=== PATIENT | male | born 1955 | race Caucasian/White ===

== ENCOUNTER → 2018-02-18 15:02 | Outpatient (CLI) | payer OTHER, SELFPAY ==
--- NOTE | 2018-02-18 | DI.RAD.S_ITS ---
PROCEDURE: XR KNEE RT 3V INDICATIONS: RT KNEE PAIN TECHNIQUE: 3 views of the knee were acquired. COMPARISON: None. FINDINGS: Bones: No fractures or dislocations. No suspicious bony lesions. There is moderate joint space narrowing in the medial femorotibial compartment. Tricompartmental ossified formation. Soft tissues: Small knee joint effusion. No suspicious soft tissue calcifications. 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 Small joint effusion. Dictated by: Jazmine Briseno M.D. on 02/18/2018 at 16:34 Approved by: Jazmine Briseno M.D. on 02/18/2018 at 16:36
== END ==
PROVIDERS: Visit Provider Nurse Practitioner Family
DX: M17.11 Unilateral primary osteoarthritis, right knee (principal); M25.461 Effusion, right knee; M25.561 Pain in right knee
CPT/HCPCS: 73562

== ENCOUNTER → 2018-03-18 06:04 | Outpatient (CLI) | payer OTHER, SELFPAY ==
--- NOTE | 2018-03-18 | DI.CT.S_ITS ---
PROCEDURE: CT LUNG LOW DOSE SCREENING INDICATIONS: PERSONAL HISTORY OF TOBACCO USE TECHNIQUE: Noncontrast 2.0-2.5 mm thick sections acquired from the pulmonary apices to the posterior costophrenic angles. 7 mm thick coronal and sagittal MIP reformats were then acquired. A low radiation dose technique was utilized. COMPARISON: None. FINDINGS: Image quality: Diagnostic, given the low radiation dose technique. Lungs and pleura: No pulmonary nodules, infiltrate or effusion. Bibasilar scars/atelectasis. Mediastinum: Heart size is normal. No pericardial effusion. No mediastinal adenopathy by size criteria. Thoracic aorta and central pulmonary arteries are normal in size. Esophagus is normal in caliber. Small hiatal hernia. Bones and chest wall: No suspicious bony lesions. No vertebral body compression fractures. Degenerative changes are noted in thoracic spine. No axillary or supraclavicular adenopathy by size criteria. There is a 1 cm low density nodule in the right thyroid lobe. Note is made of a right shoulder prosthesis. Abdomen: Visualized upper abdomen solid organs and bowel loops appear normal in the absence of contrast. IMPRESSION: 1. No suspicious pulmonary nodules. 2. Bibasilar scars/atelectasis. 3. A 1 cm low-density nodule in right thyroid lobe. Recommend thyroid ultrasound for followup. 4. Small hiatal hernia. LUNG-RADS 1 ; Recommend low dose screening lung CT in 12 months Dictated by: Jazmine Briseno M.D. on 03/18/2018 at 8:54 Approved by: Jazmine Briseno M.D. on 03/18/2018 at 8:58
--- NOTE | 2018-03-18 | DI.MRI.S_ITS ---
PROCEDURE: MR KNEE RT WO CON INDICATIONS: MEDIAL RIGHT KNEE PAIN TECHNIQUE: Noncontrast sagittal PD fast spin echo and T2 fast spin echo with fat saturation, sagittal 3-D FLASH with fat saturation; coronal T1 spin echo and PD fast spin echo with fat saturation, and axial PD fast spin echo with fat saturation through the knee. COMPARISON: None. FINDINGS: Image quality: Excellent. Menisci: There is peripheral displacement of the medial meniscus bowing medial collateral ligament. No evidence of focal medial or lateral meniscal tear. The meniscal root ligaments appear intact. Cruciate ligaments: The anterior and posterior cruciate ligaments appear intact. Medial structures: Low to moderate grade proximal MCL sprain is seen near its femoral insertion. No full-thickness MCL rupture. The posterior oblique ligament, semimembranosus tendon insertions, oblique popliteal ligament, and meniscocapsular junction appear intact. Visualized portions of the pes anserinus tendons appear normal. No abnormal bursal fluid. Lateral structures: The lateral collateral ligament, long and short heads of the biceps femoris tendon appear intact. The popliteus tendon appears normal; the popliteofibular ligament appears intact. The posterosuperior and anteroinferior popliteomeniscal fascicles appear intact. The arcuate and fabellofibular ligaments appear intact, on either side of the lateral inferior geniculate artery. Iliotibial band appears normal. Anterior structures: The quadriceps and patellar tendons appear intact. Patellar alignment is normal. No femoral trochlear dysplasia or ventral trochlear prominence. No edema in the infrapatellar fat pad. Mild soft tissue swelling along anterior aspect of patella tendon is seen. No discrete drainable fluid collection. Bones and cartilage: There is moderate tricompartmental osteoarthritis more prominently medial femoral tibial compartment. Bony contusion is noted involving weight-bearing position of medial femoral condyle. No fracture or dislocation. No other area of abnormal marrow signal is noted. There is diffuse thinning of articulating cartilages. Chondromalacia involving apex and medial facet of patella cartilage is also seen.. Joint space: There is moderate amount of joint fluid. No Branham's cyst. Normal appearing synovial plicae are incidentally noted. IMPRESSION: 1. Moderate tricompartmental osteoarthritis most prominent in the medial femorotibial compartment. No fracture or dislocation. 2. Peripheral displacement of the medial meniscus bowing medial collateral ligament. No definite focal meniscal tear. 3. Moderate grade proximal to mid MCL sprain. Cruciate ligaments are intact. Dictated by: Salvatore Beaulieu M.D. on 03/18/2018 at 10:31 Approved by: Salvatore Beaulieu M.D. on 03/18/2018 at 10:37
== END ==
PROVIDERS: PCP Nurse Practitioner Family; Visit Provider Orthopaedic Surgery
DX: S83.411A Sprain of medial collateral ligament of right knee, initial encounter (principal); M17.11 Unilateral primary osteoarthritis, right knee; M25.561 Pain in right knee; K44.9 Diaphragmatic hernia without obstruction or gangrene; J98.4 Other disorders of lung; E04.1 Nontoxic single thyroid nodule; Z87.891 Personal history of nicotine dependence
CPT/HCPCS: 71250; 73721

== ENCOUNTER → 2018-08-23 08:36 | Outpatient (CLI) | payer OTHER, SELFPAY ==
--- NOTE | 2018-08-23 | DI.MRI.S_ITS ---
PROCEDURE: MR CERVICAL SPINE WO CON INDICATIONS: right sided neck to shoulder pains TECHNIQUE: Noncontrast sagittal T1 spin echo and T2 fast spin echo, sagittal STIR, foraminal oblique sagittal T2 fast spin echo, and axial gradient echo or T2 fast spin echo through the cervical spine. COMPARISON: None. FINDINGS: Image quality: Excellent. Alignment and Curvature: There is trace C2-C3 anterolisthesis. Bone Marrow: Reactive endplate changes adjacent to C4-C5, C5-C6 and C6-C7 discs. Spinal Cord: Visualized spinal cord has normal size and signal. No cerebellar tonsillar herniation. Paraspinous Soft Tissues: No paravertebral masses. Prevertebral soft tissues are normal in thickness. C2-C3: Loss of the signal. No central stenosis. No neural foraminal narrowing. No neural impingement or C3-C4: Loss of disc signal and slight loss of disc height. Mild, diffuse disc bulge. Moderate right facet hypertrophy. Moderate right and mild left uncovertebral joint hypertrophy. No central stenosis. Severe right and mild left neural foraminal narrowing with flattening deformity exiting right C4 nerve root. C4-C5: Loss of disc signal and height. Moderate, diffuse disc bulge. Mild bilateral facet hypertrophy. Severe right and moderate left uncovertebral joint hypertrophy. Mild narrowing of the central canal. Severe bilateral neural foraminal narrowing with flattening deformity of the exiting C5 nerve roots. C5-C6: Loss of disc signal and height. Mild, diffuse disc bulge. Mild bilateral uncovertebral joint hypertrophy. No central stenosis. Moderate bilateral neural foraminal narrowing. No neural impingement. C6-C7: Loss of disc signal and height. Mild to moderate diffuse disc bulge. No central stenosis. Mild right uncovertebral joint hypertrophy. Mild right neural foraminal narrowing. No neural impingement. C7-T1: Loss of the signal. Minimal, diffuse disc bulge. No central stenosis. No neural foraminal narrowing. No neural impingement. IMPRESSION: 1. Multilevel degenerative disc disease. 2. Multilevel facet arthropathy and uncovertebral joint hypertrophy. 3. Mild C4-C5 central canal narrowing. 3. Severe bilateral C4-C5 neural foraminal narrowing. Severe right and mild left C3-C4 neural foraminal narrowing. Moderate bilateral C5-C6 neural foraminal narrowing. Mild right C6-C7 neural foraminal narrowing. 7. Flattening deformity of the exiting right C4 nerve root and the exiting bilateral C5 nerve roots secondary to neural foraminal narrowing. Please correlate with clinical data. Dictated by: Brielle Inman MD, PhD on 08/25/2018 at 11:10 Approved by: Brielle Inman MD, PhD on 08/25/2018 at 11:18
== END ==
PROVIDERS: PCP Nurse Practitioner Family; Visit Provider Anesthesiology
DX: M25.511 Pain in right shoulder (principal); M50.31 Other cervical disc degeneration, high cervical region; M48.02 Spinal stenosis, cervical region; M47.812 Spondylosis without myelopathy or radiculopathy, cervical region
CPT/HCPCS: 72141

== ENCOUNTER 2018-08-27 06:12 | Day surgery (SDC) | payer OTHER, SELFPAY ==
[2018-08-22 07:45] VITALS: BMI 34.3
[2018-08-27] VITALS (15 sets, daily range): BP systolic 88–198; BP diastolic 53–114; PULSE 61–75; RESP 12–78; TEMP 36.5–37.4; O2SAT 17–99; BMI 33.3
[2018-08-27] MEDS: LACTATED RINGERS 1,000 ML 42 ML IV ×2 (07:30→08:50)
--- NOTE | 2018-08-27 07:37 | PM.PREOP ---
Pre-operative Note Interval Note History & Physical reviewed/Exam performed by Physician: Yes Changes to H&P: No
--- NOTE | 2018-08-27 07:38 | PM.OP.1 ---
Operative Date/Time/Diagnoses Date of procedure: 08/27/18 Time of procedure: 08:59 Pre-op diagnosis: Medial compartment osteoarthritis right knee Post-op diagnosis: same Procedure & Clinicians Procedure: Medial compartment arthroplasty right knee Same procedure as scheduled: Yes Indications: The patient presents today for right medial compartment arthroplasty after failure of conservative treatment. The nature of the procedure including the risks and benefits, alternatives, postoperative course and expected outcome were discussed and all questions answered. Consent was obtained. Operative site confirmed and marked. Surgeon: Marlo Guevara Stock Control Clerk: Damian Lewis Anesthesia Type: Spinal and Local Operative Notes Findings: Severe medial compartment osteoarthritis Closure Type: primary Specimen(s): none sent Prosthetic devices, grafts, tissues, transplants, or devices: ZUK, D femur, 4 tibia and 9 mm polyethylene spacer. Applied: implant(s) Estimated Blood Loss (mL): 5 Blood products transfused: none Tourniquet time (min): 35 Procedure in detail: The patient was taken to the operative suite and placed under general anesthesia. The patient received prophylactic antibiotics 1 g of IV tranexamic acid prior to surgery. The lateral aspect of the leg was prepped and the knee injected with 20 mL of 1% lidocaine with epinephrine. The leg was prepped and draped in usual sterile fashion. The leg was exsanguinated with an Esmarch dressing and the tourniquet raised to 250 torr. A 10 cm medial parapatellar incision and arthrotomy was then made. The anterior aspect of the fat pad and medial meniscus was resected. A small amount of anterior tibial boss was resected with a oscillating saw. The knee was then extended and the alignment guide placed. The distal femoral and proximal tibial cutting guides were then pinned into place. The distal femoral cut was made in extension. The proximal tibial cut was made in flexion. All remaining meniscus was excised. Gaps were checked with blocks. Soft tissues were then injected with a combination of 40 mL of quarter percent Marcaine with epinephrine, 20 mL of Exparel. The femur was sized and the appropriate cutting guide placed. The peg holes were drilled and chamfer cuts made. Next the tibia was sized and drilled. Trial components were then placed. The knee had good restorationist of soft tissue tension without over correction. Range of motion was full. The trial components were removed. The knee was cleansed with Pulsavac irrigation and dried. The components were then cemented with high viscosity vacuum mixed bone cement. The knee was held in extension until the cement had adequately cured. The knee was then irrigated and inspected for any further debris. The extensor mechanism was closed at 90? of flexion with a few interrupted #1 Vicryl sutures and a running O V-LOC suture. The knee was then filled with 50 mL of solution containing 1 g of tranexamic acid and 10 mL of 0.5% Marcaine. The subcutaneous tissue was closed with 2-0 Vicryl. The skin was closed with a running 3 0 V-LOC suture and surgical adhesive. An Aquacel dressing was applied. The leg was then wrapped with an Vignesh which will be kept on for the first 24 hours. The patient tolerated the procedure well and was returned to recovery room in good condition. Complications: none Condition: stable Disposition: same day surgery Plan for aftercare: Discharged to home. Weightbearing as tolerated. Begin physical therapy within the 1st week. Follow up in 1 week.
--- NOTE | 2018-08-27 07:42 | SUR.PREOP ---
PT REPORTS HAS RING WORM ON LEFT OUTER UPPER THIGH THAT IS CHRONIC AND COMES AND GOES. PT REPORTS GIS CONSULTANT PRESCRIBED CREAM THAT HE USES WHEN IT APPEARS AND PT REPORTS USED THE CREAM THIS MORNING. SPOKE WITH DR. ROCHA AND NOTIFIED HIM OF THIS, NO NEW ORDERS. NOTIFIED OR ROOM RAY [place] [facility].
--- NOTE | 2018-08-27 07:45 | DI.RAD.S_ITS ---
PROCEDURE: XR KNEE RT 1TO2V INDICATIONS: RIGHT UNI KNEE, POST OPERATIVE TECHNIQUE: 2 view(s) of the knee acquired. COMPARISON: [facility], , XR KNEE RT 3V, 02/18/2018, 14:48. FINDINGS: Bones: Patient is status post knee unicompartmental medial arthroplasty. Hardware components are in expected positions. Visualized bony structures are intact. Soft tissues: Overlying postoperative changes are noted. IMPRESSION: Expected postoperative appearance. Dictated by: Dar Link M.D. on 08/27/2018 at 9:32 Approved by: Dar Link M.D. on 08/27/2018 at 9:32
[2018-08-27] MEDS: CEFAZOLIN 2 GM/100 ML FROZ.PIGGY IV (07:50)
[2018-08-27] MEDS: LIDOCAINE 1% W/EPI INJ 20 ML INJ (07:59)
[2018-08-27] MEDS: TRANEXAMIC ACID 1,000 MG VIAL 1000 MG INJ (08:10)
--- NOTE | 2018-08-27 08:25 | SUR.OPER ---
Supine on padded OR bed. Pillow under head, arms secured on padded armboards <90 degree abduction. Safety belt across torso. Non-operative leg secured with tape over blanket over lower leg. Operative leg secured in DeMayo/Nasir positioner. Foam padded brace at thigh of operative leg.
[2018-08-27] MEDS: BUPIVACAINE 0.5% W/ EPI (PF) 20 ML, BUPIVACAINE LIPOSOME 266 MG, SODIUM CHLORIDE 0.9% 2... INJ (08:53)
[2018-08-27] MEDS: BUPIVACAINE 0.5% W/ EPI (PF) 10 ML, TRANEXAMIC ACID 1,000 MG, SODIUM CHLORIDE 0.9% 20 ML INJ (08:54)
[2018-08-27] MEDS: POVIDONE-IODINE 15 ML, SODIUM CHLORIDE 0.9% 250 ML TOP (08:55)
--- NOTE | 2018-08-27 09:32 | SUR.PHASEI ---
0929 To OPD, report given, two RN's present. +motion in Dinesh LE, no sensation, CMS WNL. Alert, oriented, no nausea/pain.
[2018-08-27] MEDS: OXYCODONE/ACETAMINOPHEN 5/325 TABLET 1 TAB PO ×2 (12:41→13:30)
[2018-08-27] MEDS: NAPROXEN 250 MG TABLET 500 MG PO (14:10)
[2018-08-27] MEDS: fentaNYL 100 MCG/2 ML INJ 50 MCG IV ×4 (14:55→15:55)
--- NOTE | 2018-08-27 17:07 | P.PCN_ITS ---
Procedures Date/Time Date of procedure: 08/27/18 Time of procedure: 17:06 Nerve Block Time out performed: Yes Local anesthetic used: lidocaine 1% (w/ epi 5mL + 15mL 0.5opivacaine) Location of anesthetic used: adductor canal Amount of anesthesia used (mL): 20 Nerve blocks: femoral (adductor canal) Procedure successful: Yes Patient tolerated procedure: well Complications: none Additional comments: Adductor canal block for post operative pain management. R/B discussed. Site marked. Consent verified/signed. Standard ASA monitors. NC O2. Chloroprep. Sterile technique. Femoral A/V/N identified medial mid thigh with US. Lidocaine skin wheal. 100mm x 21g Pajunk needle advanced with in-plane US guidance. Negative aspiration. LA injected medial and lateral to femoral artery. Negative aspiration throughout. No pain, no paresthesia with injection. VSS. Tolerated well. To OR.
--- NOTE | 2018-08-27 17:47 | SUR.PHASEII ---
1656 . Monitoring initiated and maintained throughout procedure. Oxygen and medications given per anesthesiologist instructions. Patient remained stable throughout procedure, no adverse reactions noted. Block end time [1701].
--- NOTE | 2018-08-27 17:48 | SUR.PHASEII ---
pt struggled with pain control issues and spinal not wearing off all day. oral meds and iv meds were not effective and ultimately nerve block was done at 1700 and pt had almost immediate relief pain went from 8/ to 3/. out of bed to wheelchair and toilet with minimal assist
--- NOTE | 2018-08-27 18:26 | SUR.PHASEII ---
pt ambulated from bed to bathroom using walker with no assit., dressed self, discharged to home with
== END 2018-08-27 18:15 | disposition home or self-care (01) ==
PROVIDERS: PCP Nurse Practitioner Family; Visit Provider Orthopaedic Surgery
PROC: (CPT 27446; principal; 2018-08-27 07:45)
DX: M17.11 Unilateral primary osteoarthritis, right knee (principal); S83.241A Other tear of medial meniscus, current injury, right knee, initial encounter; G89.18 Other acute postprocedural pain; G47.30 Sleep apnea, unspecified; E66.9 Obesity, unspecified; I10 Essential (primary) hypertension; E78.00 Pure hypercholesterolemia, unspecified; E11.9 Type 2 diabetes mellitus without complications; J44.9 Chronic obstructive pulmonary disease, unspecified; F17.210 Nicotine dependence, cigarettes, uncomplicated; Z79.84 Long term (current) use of oral hypoglycemic drugs; Z68.33 Body mass index [BMI] 33.0-33.9, adult
CPT/HCPCS: 27446; 64447; 64450; 73560; C1776; C9290; J0690; J2250; J2704; J3010

== ENCOUNTER → 2019-01-28 07:43 | Outpatient (CLI) | payer OTHER, SELFPAY ==
--- NOTE | 2019-01-28 | DI.US.S_ITS ---
PROCEDURE: US ABD AORTA ANEURYSM SCREEN INDICATIONS: SCREENING TECHNIQUE: Real time scanning was performed of the aorta and iliac arteries, with image documentation. COMPARISON: None. FINDINGS: Aorta: Proximal aortic diameter measures 3.3 cm. Mid-aorta measures 2.4 cm. Distal aortic diameter is 2.1 cm. Vascular calcifications indicate atherosclerosis. Iliac arteries: Right common iliac artery measures 1.6 cm. Left common iliac artery measures 1.8 cm. IMPRESSION: Mild aneurysmal dilatation of the proximal aorta measuring up to 3.3 cm. 3 year followup ultrasound recommended. Dictated by: Kishor MACK Interpreted: Dar Link MD on 01/28/2019 at 8:59 Approved by: Dar Link M.D. on 01/28/2019 at 11:23
== END ==
PROVIDERS: PCP Nurse Practitioner Family; Visit Provider Nurse Practitioner Family
DX: Z13.6 Encounter for screening for cardiovascular disorders (principal); I77.811 Abdominal aortic ectasia
CPT/HCPCS: 76706

== ENCOUNTER 2019-04-25 22:24 | Emergency (ER) | payer OTHER, SELFPAY ==
--- NOTE | 2019-04-25 22:28 | ED_ITS ---
HPI - Chest Pain General Chief Complaint: Chest Pain Stated Complaint: coughed and now has left side rib pain Time Seen by Provider: 04/25/19 22:27 Source: patient and family Mode of arrival: Ambulatory Limitations: no limitations History of Present Illness HPI narrative: 63-year-old male with history of hypertension and lung disease presents with his in the chief complaint of severe left anterior chest pain after coughing and feeling a pop. He now can't palpate a tender spot in his left anterior chest wall. He denies any shortness of breath but has been coughing for a few weeks. He denies that there is any sputum production, hemoptysis, fever or chills. MD complaint: chest pain Onset (ago): hour(s) Duration: constant Pain location: left chest Severity: moderate Quality: sharp Pain radiation: none Relieving factors: rest Exacerbating factors: inspiration and palpation Related Data Home Medications Medication Instructions Recorded Confirmed Advair Diskus 1 inh INHALATION BID 08/22/18 03/19/19 Spiriva with HandiHaler 1 cap INHALATION DAILY 08/22/18 03/19/19 Ventolin HFA 1 puff INHALATION Q4-6H PRN 08/22/18 03/19/19 aspirin 81 mg PO DAILY 08/22/18 03/19/19 benzonatate 100 mg PO TID PRN 08/22/18 03/19/19 clonidine HCl 0.2 mg PO DAILY 08/22/18 03/19/19 esomeprazole magnesium 40 mg PO DAILY 08/22/18 03/19/19 gabapentin 600 mg PO BEDTIME PRN 08/22/18 03/19/19 hydrocodone-acetaminophen 1 tab PO Q6H PRN 08/22/18 03/19/19 metformin 500 mg PO BID 08/22/18 03/19/19 sennosides-docusate sodium [Senna 1 tab PO BID 08/22/18 03/19/19 Plus] simvastatin 10 mg PO BEDTIME 08/22/18 03/19/19 tamsulosin 0.4 mg PO DAILY 08/22/18 03/19/19 zolpidem 5 mg PO BEDTIME PRN 08/22/18 03/19/19 Previous Rx's Medication Instructions Recorded oxycodone 10 mg PO Q4-6H PRN #60 tab 08/27/18 Oral Appliance for mild ALVERTO G47.33 #1 ea 10/28/18 benzonatate [Tessalon Perles] 100 mg PO TID PRN #14 cap 04/25/19 promethazine-codeine 5 ml PO Q4-6H PRN #473 ml 04/26/19 Allergies Allergy/AdvReac Type Severity Reaction Status Date / Time No Known Drug Allergies Allergy Verified 03/19/19 09:39 Review of Systems Constitutional Constitutional: Denies chills, Denies fatigue, Denies fever(s), Denies frequent falls, Denies lethargy and Denies weakness Eyes Eyes: Denies change in vision, Denies eye discharge, Denies irritation and Denies loss of vision ENT Ears, Nose, Mouth, and Throat: Denies change in voice, Denies dizziness, Denies neck pain, Denies sore throat and Denies throat swelling Cardiovascular Cardiovascular: Reports chest pain, Denies irregular heart rhythm, Denies lightheadedness, Denies palpitations, Denies dyspnea, Denies dyspnea on exertion and Denies orthopnea Respiratory Respiratory: Reports cough, Denies dyspnea, Denies dyspnea on exertion and Denies wheezing Gastrointestinal Gastrointestinal: Denies abdominal pain, Denies change in bowel habits, Denies diarrhea, Denies nausea and Denies vomiting Genitourinary Genitourinary: Denies hematuria, Denies flank pain, Denies urinary incontinence and Denies urinary urgency Musculoskeletal Musculoskeletal: Denies back pain, Denies muscle weakness, Denies neck pain, Denies numbness and Denies tingling Integumentary/Breasts Skin/Breast: Denies pruritus, Denies erythema, Denies rash and Denies wounds Neurologic Neurologic: Denies behavioral changes, Denies confusion, Denies dizziness, Denies frequent falls, Denies loss of vision, Denies numbness, Denies tingling and Denies weakness Psychiatric Psychiatric: Denies anxiety, Denies behavioral changes, Denies confusion, Denies depression, Denies homicidal ideation and Denies suicidal ideation Endocrine Endocrine: Denies fatigue, Denies flushing and Denies palpitations Hematologic/Lymphatic Hematologic/Lymphatic: Denies easy bruising Allergic/Immunologic Allergic/Immunologic: Denies urticaria, Denies throat swelling and Denies wheezing Patient History Medical History Chronic pancreatitis (Acute) COPD (chronic obstructive pulmonary disease) (Acute) Current every day smoker (Acute) Glaucoma (Acute) HTN (hypertension) (Acute) Hyperlipidemia (Acute) Leukocytosis (Acute) Multiple myeloma (Acute) Prostate cancer (Acute ~2008) Sleep apnea (Acute) Type 2 diabetes mellitus (Acute) Surgical History History of arthroplasty of right shoulder (Acute ~05/2017) History of pancreatic surgery (Acute ~2010) Hx of arthroscopy of left knee (Acute) Hx of cholecystectomy (Acute ~2010) Hx of shoulder surgery (Acute) Hx of splenectomy (Acute ~2010) S/P left unicompartmental knee replacement (Acute ~2013) Social History household members: spouse Smoking Status: Current every day smoker Exam Narrative Exam Narrative: GENERAL 63 year old patient appears stated age. Well-nourished, well-developed patient, obviously uncomfortable and splinting his left anterior chest HEAD: Atraumatic. Normocephalic. EYES: Pupils equal round and reactive. Extraocular motions intact. No scleral ic terus. No injection or drainage. ENT: Nose without bleeding, purulent drainage. Throat without erythema, tonsillar hypertrophy or exudate. Airway patent. NECK: Trachea midline. Non tender CARDIOVASCULAR: Tender to palpate left anterior chest Regular rate and rhythm without murmurs, gallops, or rubs. RESPIRATORY: Clear to auscultation. Breath sounds equal bilaterally. No wheezes, rales, or rhonchi. GASTROINTESTINAL: Abdomen soft, non-tender, nondistended. EXTREMITIES: No edema or joint tenderness. BACK: Nontender without deformity or crepitance. No flank tenderness. NEURO: AOx3. SKIN: No rash or erythema of visible areas Initial Vital Signs Initial Vital Signs: Vital Signs Temperature 98.7 F 04/25/19 22:36 Pulse Rate 81 04/25/19 22:36 Respiratory Rate 14 04/25/19 22:36 Blood Pressure 206/118 H 04/25/19 22:36 Pulse Oximetry 96 04/25/19 22:36 Procedures Orthopedic Splinting/Casting Injury #1: Side: left Upper Extremity Injury Location: shoulder Upper Extremity Immobilizer: sling/shoulder immobilizer Post splinting neuro exam: intact Post splinting vascular exam: intact Placed by: Nursing Course Orders Ordered: ED Orders 04/25/19 22:41 XR chest 2V Stat Discontinued Medications Acetaminophen/Codeine Phosphate (Tylenol Oral Gladis 120-12 Mg/5 Ml) 10 ml PO NOW ONE Stop: 04/26/19 00:04 Last Admin: 04/26/19 00:33 Dose: 10 ml Documented by: MADI Lidocaine (Lidoderm) 1 each TOP NOW ONE Stop: 04/25/19 22:58 Last Admin: 04/25/19 23:22 Dose: 1 each Documented by: MADI Vital Signs Vital signs: Vital Signs - 8 hr 04/25/19 22:36 04/26/19 00:54 Temperature 98.7 F Pulse Rate 81 73 Respiratory Rate 14 15 Blood Pressure 206/118 H 183/100 H Pulse Oximetry 96 95 MDM - Chest Pain Imaging Data Chest x-ray: Attestation: I personally reviewed and interpreted this imaging study as follows: My impression: No acute process Discharge Plan Departure Patient Disposition: Home Clinical Impression: Atypical chest pain, Costalchondritis Discharge Date/Time: 04/26/19 00:45 Instructions: DI for Atypical Chest Pain Activity Restrictions/Additional Instructions: *You have been diagnosed with [chest wall pain, x-ray did not show fracture or collapsed lung, nor pneumonia] *What to do: *Take medications as directed *Follow up with your primary care provider in 2-3 days, call for an appointment. Let them know you were seen in the Emergency Department and that we ask that you be seen in follow up *Return to ER if you should have any new, worsening or concerning symptoms such as worsening pain, shortness of breath, cough with bloody sputum or other bothersome symptoms Radiographic study has been interpreted by an emergency physician. The official diagnosis by radiology will be performed within the next 24 hours and should there be any change in outcome we will notify you of how to proceed. Prescriptions: New benzonatate [Tessalon Perles] 100 mg capsule 100 mg PO TID PRN (Reason: cough) Qty: 14 RF: 0 promethazine-codeine 6.25-10 mg/5 mL syrup 5 ml PO Q4-6H PRN (Reason: cough) Qty: 473 RF: 0 No Action (DME) Oral Appliance for mild ALVERTO G47.33 Qty: 1 RF: 0 hydrocodone-acetaminophen 10-325 mg Tablet 1 tab PO Q6H PRN (Reason: Pain) RF: 0 gabapentin 300 mg Capsule 600 mg PO BEDTIME PRN (Reason: Restless Leg(S)) RF: 0 zolpidem 5 mg Tablet 5 mg PO BEDTIME PRN (Reason: Insomnia) RF: 0 Ventolin HFA 90 mcg/actuation Hfa Aerosol Inhaler 1 puff INHALATION Q4-6H PRN (Reason: Shortness Of Breath) RF: 0 metformin 500 mg Tablet 500 mg PO BID RF: 0 Advair Diskus 250-50 mcg/dose Blister With Device 1 inh INHALATION BID RF: 0 sennosides-docusate sodium [Senna Plus] 8.6-50 mg Tablet 1 tab PO BID RF: 0 simvastatin 10 mg Tablet 10 mg PO BEDTIME RF: 0 aspirin 81 mg Tablet,Delayed Release (Dr/Ec) 81 mg PO DAILY RF: 0 clonidine HCl 0.2 mg Tablet 0.2 mg PO DAILY RF: 0 tamsulosin 0.4 mg Capsule 0.4 mg PO DAILY RF: 0 benzonatate 100 mg Capsule 100 mg PO TID PRN (Reason: Cough) RF: 0 esomeprazole magnesium 40 mg Capsule,Delayed Release(Dr/Ec) 40 mg PO DAILY RF: 0 Spiriva with HandiHaler 18 mcg Capsule, W/Inhalation Device 1 cap INHALATION DAILY RF: 0 oxycodone 5 mg tablet 10 mg PO Q4-6H PRN (Reason: pain) Qty: 60 RF: 0 Referrals: Felicita Tavares ARNP [Primary Care Provider] -
[2019-04-25 22:36] VITALS: BP 206/118; PULSE 81; RESP 14; TEMP 37.1; O2SAT 96; BMI 35.2
--- NOTE | 2019-04-25 22:41 | DI.RAD.S_ITS ---
PROCEDURE: XR CHEST 2V INDICATIONS: chest pain s/p cough TECHNIQUE: 2 views of the chest were acquired. COMPARISON: [facility], CT, CT LUNG LOW DOSE SCREENING, 03/18/2018, 7:05. FINDINGS: Surgical changes and devices: There is partial visualization of right shoulder hardware. Lungs and pleura: The lungs are hyperexpanded. Mild, streaky opacities are seen at the lung bases. Mild interstitial prominence is seen. No large pneumothorax or large pleural effusions are seen. Mediastinum: The cardiac contours are within normal limits. The aorta demonstrates calcification and tortuosity. Bones and chest wall: No suspicious bony abnormalities. Age-appropriate bony degenerative changes are seen. Soft tissues appear unremarkable. IMPRESSION: Interstitial prominence is seen throughout. The interstitial prominence is nonspecific, yet may be related to pulmonary edema. Likely atelectasis is seen at the lung bases. Dictated by: Farhan Villegas M.D. on 04/26/2019 at 8:13 Approved by: Farhan Villegas M.D. on 04/26/2019 at 8:15
[2019-04-25] MEDS: LIDOCAINE PATCH 1 EACH ADH..PATCH TOP (23:22)
--- NOTE | 2019-04-25 23:40 | PC.NURSE ---
Pt came to the doorway to report new LLQ pain, then vomited into the trash can. Dr Almonte notified, orders for meds and KUB received. Pt aware and agreeable to plan.
[2019-04-26] MEDS: ACETAMINOPHEN/CODEINE SOLN 5 ML SOLUTION 10 ML PO (00:33)
[2019-04-26 00:54] VITALS: BP 183/100; PULSE 73; RESP 15; O2SAT 95
== END 2019-04-26 00:45 | disposition home or self-care (01) ==
PROVIDERS: Emergency Provider Emergency Medicine; PCP Nurse Practitioner Family
DX: R07.89 Other chest pain (principal); M94.0 Chondrocostal junction syndrome [Tietze]; E11.9 Type 2 diabetes mellitus without complications
CPT/HCPCS: 71046; 99282; 99283

== ENCOUNTER → 2020-03-08 09:33 | Outpatient (CLI) | payer MEDICARE, SELFPAY ==
[2020-03-09 14:16] LABS: COVID19 Sendout Not Detected (Not Detect)
== END ==
PROVIDERS: PCP Nurse Practitioner Family; Visit Provider Physician Assistant
DX: Z11.59 Encounter for screening for other viral diseases (principal)
CPT/HCPCS: 87635

== ENCOUNTER → 2020-03-11 14:55 | Outpatient (CLI) | payer MEDICARE, OTHER, SELFPAY ==
--- NOTE | 2020-03-11 16:02 | PM.TREADMILL ---
Cardiac Stress Test Report Referral & Results Date Patient Seen: 03/11/20 Time Patient Seen: 16:02 Requesting provider: Kylah Rose Indication: Patient presented to stress lab with blood pressure of 180/110 and was unchanged on subsequent checks. ECG ran fro 10 minutes and no PVCs were seen. Rest ECG: Sinus rhythm Procedure Note: Test cancelled due to elevated blood pressure. Impression: Test may be completed after optimization of antihypertensive medications. Please note: Actual ECG tracings can be found in the PACS system.
== END ==
PROVIDERS: PCP Nurse Practitioner Family; Referring Provider Internal Medicine; Visit Provider Internal Medicine
DX: I49.3 Ventricular premature depolarization (principal); I10 Essential (primary) hypertension; Z53.09 Procedure and treatment not carried out because of other contraindication
CPT/HCPCS: 93016; 93017; 93018

== ENCOUNTER → 2020-03-18 11:35 | Outpatient (CLI) | payer MEDICARE, OTHER, SELFPAY ==
[2020-03-20 09:29] LABS: COVID19 Sendout Not Detected (Not Detect)
== END ==
PROVIDERS: PCP Nurse Practitioner Family; Visit Provider Physician Assistant
DX: Z11.59 Encounter for screening for other viral diseases (principal)
CPT/HCPCS: 87635

== ENCOUNTER → 2020-03-21 10:22 | Outpatient (CLI) | payer MEDICARE, OTHER, SELFPAY ==
--- NOTE | 2020-03-22 18:14 | DI.NM.S_ITS ---
DATE OF SERVICE: 03/21/2020 PROCEDURE: Exercise perfusion study. INDICATION: PVCs, hypertension, hyperlipidemia. RADIOPHARMACEUTICAL: 25.8 millicurie technetium-99m IV was injected at stress and 24.4 millicurie technetium-99m Myoview IV was injected at rest. CARDIAC STRESS: The patient underwent exercise perfusion study under the supervision of an attending staff. He walked on modified Ronald protocol. Patient could not tolerate stage II, so speed was reduced, but eventually it was discontinued at 4 minutes and 30 seconds. Patient felt significant shortness of breath. No chest pain. Baseline blood pressure 140/90. Peak blood pressure 216/120, suggestive of hypertensive blood pressure response. Achieved 84 percent of target heart rate. This baseline rhythm was sinus. During stress, no convincing EKG changes. Intermittent PVCs without any ventricular tachycardia. RAW DATA: There is increased subdiaphragmatic activity. Patient's weight is 271 pounds. GATED STUDY: Stress and resting LV ejection fraction about 57 percent without any obvious wall motion abnormalities. Resting end-diastolic volume 164 mL. TID ratio 0.97, which is within normal limits. Lung/heart ratio 0.34, which is within normal limits. MYOCARDIAL PERFUSION: Stress supine, resting supine images revealed moderate size, mild to moderately decreased perfusion of inferior wall and inferior apex, which got significantly improved during prone images suggestive of diaphragmatic tissue attenuation artifact. Prone images showed minimally decreased perfusion of inferior apex. No reversible ischemia. CONCLUSION: I will call this study likely a normal myocardial perfusion study with evidence of diaphragmatic tissue attenuation artifact ,which got significantly improved during prone images. There is an element of shifting attenuation artifact, as well. Poor exercise tolerance. Significant dyspnea during exercise. Intermittent premature ventricular contractions during exercise without any ventricular tachycardia. Hypertensive blood pressure response. The patient's weight is 271 pounds. There is a history of smoking, as well. Correlate clinically. Ernst Barrera - SONDRA/farzaneh/elle doc#: [id number]/job#: [id number] dd: 03/22/2020 17:15:00 dt: 03/22/2020 18:06:00 DICTATING MD/COPIES TO: Mike Khan MD COPIES MNE: JERONIMO;
== END ==
PROVIDERS: PCP Internal Medicine; Referring Provider Internal Medicine; Visit Provider Internal Medicine
DX: I49.3 Ventricular premature depolarization (principal); I10 Essential (primary) hypertension; E78.5 Hyperlipidemia, unspecified
CPT/HCPCS: 78452; 93017; A9502

== ENCOUNTER → 2020-05-19 08:14 | Outpatient (CLI) | payer MEDICARE, OTHER, SELFPAY ==
[2020-05-19 09:33] LABS: Hemoglobin A1C% w Est Avg Glu 6.6 % (4.0-6.0)
[2020-05-19 09:41] LABS: Alanine Aminotransferase 33 IU/L (<50); Albumin Globulin Ratio 1.3 (1.0-2.8); Alkaline Phosphatase 79 U/L (38-126); Aspartate Aminotransferase 31 IU/L (17-59); Bilirubin Total 0.6 mg/dL (0.2-1.3); Blood Urea Nitrogen 26 mg/dL (9-20); Calcium 9.4 mg/dL (8.4-10.2); Carbon Dioxide 32 mmol/L (22-32); Chloride 104 mmol/L (98-107); Cholesterol 154 mg/dL (140-199); Estimated Glomerular Filt Rate > 60.0 mL/min (>60); Glucose 110 mg/dL (80-110); HDL Cholesterol 50 mg/dL (40-60); HEMOLYSIS < 15 (0-50); LDL Cholesterol Calculated 85 mg/dL (<100); Sodium 141 mmol/L (137-145); Triglycerides 93 mg/dL (35-150)
== END ==
PROVIDERS: PCP Internal Medicine; Referring Provider Internal Medicine; Visit Provider Internal Medicine
DX: I10 Essential (primary) hypertension (principal); E11.9 Type 2 diabetes mellitus without complications; E78.5 Hyperlipidemia, unspecified
CPT/HCPCS: 36415; 80053; 80061; 83036

== ENCOUNTER → 2020-06-11 11:03 | Outpatient (CLI) | payer MEDICARE, OTHER, SELFPAY ==
[2020-06-11 11:53] LABS: COVID19 -Nasal RAPID Negative (Negative)
== END ==
PROVIDERS: PCP Internal Medicine; Visit Provider Physician Assistant
DX: Z01.812 Encounter for preprocedural laboratory examination (principal); Z20.828 Contact with and (suspected) exposure to other viral communicable diseases
CPT/HCPCS: 87635; C9803

== ENCOUNTER → 2020-08-01 16:41 | Outpatient (CLI) | payer MEDICARE, OTHER, SELFPAY ==
[2020-08-01 17:58] LABS: Alanine Aminotransferase 22 IU/L (<50); Albumin 3.8 g/dL (3.5-5.0); Albumin Globulin Ratio 1.3 (1.0-2.8); Alkaline Phosphatase 81 U/L (38-126); Aspartate Aminotransferase 25 IU/L (17-59); BUN Creatinine Ratio 25.5 (6-22); Bilirubin Total 0.2 mg/dL (0.2-1.3); Blood Urea Nitrogen 24 mg/dL (9-20); Calcium 9.1 mg/dL (8.4-10.2); Carbon Dioxide 31 mmol/L (22-32); Chloride 102 mmol/L (98-107); Estimated Glomerular Filt Rate > 60.0 mL/min (>60); Globulin 2.9 g/dL (1.7-4.1); Glucose 121 mg/dL (80-110); HEMOLYSIS < 15 (0-50); Potassium 3.8 mmol/L (3.4-5.1); Sodium 136 mmol/L (137-145); Total Protein 6.7 g/dL (6.3-8.2)
[2020-08-01 18:06] LABS: Hemoglobin A1C% w Est Avg Glu 6.1 % (4.0-6.0)
[2020-08-01 18:13] LABS: Add Manual Diff / Slide Review NO; Basophils Absolute Auto 100 /uL (0-100); Basophils Percent Auto 0.6 % (0-2); Eosinophils Absolute Auto 200 /uL (0-450); Eosinophils Percent Auto 1.8 % (2-4); Hematocrit 39.6 % (41-53); Hemoglobin 13.3 g/dL (13.5-17.5); Lymphocytes Absolute Auto 3600 /uL (1100-4500); Lymphocytes Percent Auto 28.1 % (25-40); Mean Corpuscular HGB Conc 33.5 % (30-36); Mean Corpuscular Hemoglobin 30.8 PG (26-34); Mean Corpuscular Volume 92.1 fL (80-100); Monocytes Absolute Auto 800 /uL (0-900); Monocytes Percent Auto 6.6 % (3-14); Neutrophils Absolute Auto 8000 /uL (1500-7000); Neutrophils Percent Auto 62.9 % (50-75); Platelet Count 328 X10^3/uL (150-400); Red Cell Distribution Width 14.4 % (11.6-14.8); White Blood Cell Count 12.7 X10^3/uL (4.5-11.0)
[2020-08-01 18:24] LABS: Thyroid Stimulating Hormone 0.811 uIU/mL (0.47-4.68)
[2020-08-01 19:02] LABS: Folate 9.2 ng/mL (2.76-20.0); Vitamin B12 333 pg/mL (239-931)
[2020-08-02 17:33] LABS: Vitamin B6 12.1 ug/L (5.3-46.7)
[2020-08-02 23:07] LABS: Methylmalonic Acid,Serum 182 nmol/L (0-378)
== END ==
PROVIDERS: PCP Internal Medicine; Referring Provider Psychiatry & Neurology Neurology; Visit Provider Psychiatry & Neurology Neurology
DX: G62.9 Polyneuropathy, unspecified (principal); I10 Essential (primary) hypertension; E13.40 Other specified diabetes mellitus with diabetic neuropathy, unspecified; E78.49 Other hyperlipidemia
CPT/HCPCS: 36415; 80053; 82607; 82746; 83036; 83921; 84207; 84443; 85025

== ENCOUNTER → 2020-08-26 11:58 | Outpatient (CLI) | payer MEDICARE, OTHER, SELFPAY ==
[2020-08-26 12:45] LABS: Add Manual Diff / Slide Review NO; Basophils Absolute Auto 100 /uL (0-100); Basophils Percent Auto 0.6 % (0-2); Eosinophils Absolute Auto 200 /uL (0-450); Eosinophils Percent Auto 2.1 % (2-4); Hematocrit 41.7 % (41-53); Hemoglobin 13.8 g/dL (13.5-17.5); Lymphocytes Absolute Auto 3200 /uL (1100-4500); Lymphocytes Percent Auto 29.2 % (25-40); Mean Corpuscular HGB Conc 33.1 % (30-36); Mean Corpuscular Hemoglobin 30.6 PG (26-34); Mean Corpuscular Volume 92.5 fL (80-100); Monocytes Absolute Auto 700 /uL (0-900); Monocytes Percent Auto 6.7 % (3-14); Neutrophils Absolute Auto 6700 /uL (1500-7000); Neutrophils Percent Auto 61.4 % (50-75); Platelet Count 290 X10^3/uL (150-400); Red Cell Distribution Width 14.6 % (11.6-14.8); White Blood Cell Count 10.9 X10^3/uL (4.5-11.0)
[2020-08-26 12:59] LABS: Alanine Aminotransferase 25 IU/L (<50); Albumin Globulin Ratio 1.6 (1.0-2.8); Alkaline Phosphatase 80 U/L (38-126); Aspartate Aminotransferase 26 IU/L (17-59); BUN Creatinine Ratio 22.7 (6-22); Bilirubin Total 0.4 mg/dL (0.2-1.3); Blood Urea Nitrogen 22 mg/dL (9-20); Calcium 9.9 mg/dL (8.4-10.2); Carbon Dioxide 28 mmol/L (22-32); Chloride 101 mmol/L (98-107); Estimated Glomerular Filt Rate > 60.0 mL/min (>60); Globulin 2.5 g/dL (1.7-4.1); Glucose 168 mg/dL (80-110); HEMOLYSIS < 15 (0-50); Lactate Dehydrogenase 355 U/L (313-618); Potassium 3.9 mmol/L (3.4-5.1); Sodium 136 mmol/L (137-145); Total Protein 6.5 g/dL (6.3-8.2)
[2020-08-29 12:38] LABS: Beta-2-Microglobulin 2.1 mg/L (0.6-2.4); Immunoglobulin A, Serum 308 mg/dL (61-437); Immunoglobulin G,Serum 700 mg/dL (603-1613); Immunoglobulin M, Serum 43 mg/dL (20-172)
[2020-08-29 15:28] LABS: Albumin 3.5 g/dL (2.9-4.4); Alpha-1-Globulin 0.2 g/dL (0.0-0.4); Alpha-2-Globulin 0.8 g/dL (0.4-1.0); Gamma Globulin 0.8 g/dL (0.4-1.8); Globulin Total 2.9 g/dL (2.2-3.9); Protein, Total 6.4 g/dL (6.0-8.5)
[2020-09-01 08:12] LABS: Free Kappa Lt Chains, Serum 23.6; Free Lambda Lt Chains,Serum 14.7
== END ==
PROVIDERS: PCP Internal Medicine; Referring Provider Internal Medicine Hematology & Oncology; Visit Provider Internal Medicine Hematology & Oncology
DX: D47.2 Monoclonal gammopathy (principal)
CPT/HCPCS: 36415; 80053; 82232; 82784; 83615; 83883; 84155; 84165; 85025; 86334

== ENCOUNTER → 2020-10-17 10:12 | Outpatient (CLI) | payer MEDICARE, OTHER, SELFPAY ==
[2020-10-17 12:35] LABS: Prostate Specific Antigen < 0.064 ng/mL (0.10-4.00)
== END ==
PROVIDERS: PCP Internal Medicine; Referring Provider Specialist; Visit Provider Specialist
DX: R97.20 Elevated prostate specific antigen [PSA] (principal)
CPT/HCPCS: 36415; 84153

== ENCOUNTER → 2021-06-30 10:39 | Outpatient (CLI) | payer MEDICARE, OTHER, SELFPAY ==
--- NOTE | 2021-06-30 | DI.RAD.S_ITS ---
PROCEDURE: XR SHOULDER RT MIN 2V INDICATIONS: Presence of right artificial shoulder joint TECHNIQUE: 3 views of the shoulder were acquired. COMPARISON: None. FINDINGS: Bones: Expected appearance of right shoulder arthroplasty. No evidence of hardware failure or loosening. No fractures or dislocations. No suspicious bony lesions. Visualized ribs appear intact. Soft tissues: No suspicious soft tissue calcifications. IMPRESSION: Expected appearance of right shoulder arthroplasty. Dictated by: Jimmy Ho M.D. on 06/30/2021 at 15:12 Approved by: Jimmy Ho M.D. on 06/30/2021 at 15:25
== END ==
PROVIDERS: PCP Internal Medicine; Referring Provider Pain Medicine Pain Medicine; Visit Provider Pain Medicine Pain Medicine
DX: Z96.611 Presence of right artificial shoulder joint (principal)
CPT/HCPCS: 73030

== ENCOUNTER → 2021-08-29 08:38 | Outpatient (CLI) | payer MEDICARE, OTHER, SELFPAY ==
[2021-08-29 09:42] LABS: Add Manual Diff / Slide Review NO; Basophils Absolute Auto 100 /uL (0-100); Basophils Percent Auto 0.5 % (0-2); Eosinophils Absolute Auto 200 /uL (0-450); Eosinophils Percent Auto 2.1 % (2-4); Hematocrit 40.7 % (41-53); Hemoglobin 13.8 g/dL (13.5-17.5); Lymphocytes Absolute Auto 3000 /uL (1100-4500); Lymphocytes Percent Auto 28.9 % (25-40); Mean Corpuscular Hemoglobin 30.8 PG (26-34); Mean Corpuscular Volume 90.6 fL (80-100); Monocytes Absolute Auto 800 /uL (0-900); Monocytes Percent Auto 7.8 % (3-14); Neutrophils Absolute Auto 6300 /uL (1500-7000); Neutrophils Percent Auto 60.7 % (50-75); Platelet Count 270 X10^3/uL (150-400); Red Blood Cell Count 4.49 X10^6/uL (4.5-5.9); Red Cell Distribution Width 14.8 % (11.6-14.8); White Blood Cell Count 10.3 X10^3/uL (4.5-11.0)
[2021-08-29 10:24] LABS: Alanine Aminotransferase 18 IU/L (<50); Albumin 4.1 g/dL (3.5-5.0); Albumin Globulin Ratio 1.6 (1.0-2.8); Alkaline Phosphatase 84 U/L (38-126); Aspartate Aminotransferase 21 IU/L (17-59); BUN Creatinine Ratio 20.4 (6-22); Bilirubin Total 0.5 mg/dL (0.2-1.3); Blood Urea Nitrogen 19 mg/dL (9-20); Calcium 9.4 mg/dL (8.4-10.2); Carbon Dioxide 29 mmol/L (22-32); Chloride 105 mmol/L (98-107); Estimated Glomerular Filt Rate > 60.0 mL/min (>60); Globulin 2.6 g/dL (1.7-4.1); Glucose 132 mg/dL (80-110); HEMOLYSIS < 15 (0-50); Lactate Dehydrogenase 368 U/L (313-618); Potassium 4.2 mmol/L (3.4-5.1); Sodium 141 mmol/L (137-145); Total Protein 6.7 g/dL (6.3-8.2)
[2021-08-31 11:51] LABS: Free Kappa Lt Chains, Serum 23.4 mg/L (3.3-19.4); Free Lambda Lt Chains,Serum 15.3 mg/L (5.7-26.3)
[2021-08-31 16:49] LABS: Immunoglobulin A, Serum 334 mg/dL (61-437); Immunoglobulin G,Serum 750 mg/dL (603-1613); Immunoglobulin M, Serum 40 mg/dL (20-172)
[2021-09-01 04:52] LABS: Beta-2-Microglobulin 1.9 mg/L (0.6-2.4)
== END ==
PROVIDERS: PCP Internal Medicine; Referring Provider Internal Medicine Hematology & Oncology; Visit Provider Internal Medicine Hematology & Oncology
DX: D47.2 Monoclonal gammopathy (principal)
CPT/HCPCS: 36415; 80053; 82232; 82784; 83615; 83883; 84155; 85025; 86334

== ENCOUNTER → 2021-10-17 10:42 | Outpatient (CLI) | payer MEDICARE, OTHER, SELFPAY ==
[2021-10-17 16:13] LABS: Prostate Specific Antigen < 0.064 ng/mL (0.10-4.00)
== END ==
PROVIDERS: PCP Internal Medicine; Referring Provider Specialist; Visit Provider Specialist
DX: R97.20 Elevated prostate specific antigen [PSA] (principal)
CPT/HCPCS: 36415; 84153

== ENCOUNTER → 2021-12-14 09:44 | Outpatient (CLI) | payer MEDICARE, OTHER, SELFPAY ==
--- NOTE | 2021-12-14 | DI.RAD.S_ITS ---
PROCEDURE: XR LUMBAR SPINE MIN 4V INDICATIONS: Lumbago with sciatica, right side TECHNIQUE: 5 views of the lumbar spine acquired, including flexion and extension views. COMPARISON: None. FINDINGS: Bones: 5 nonrib-bearing vertebrae are present. There is extensive degenerative change. Multilevel facet arthropathy. Trace anterolisthesis of L5 on S1 with minimal motion noted. L4-L5 as normal alignment on neutral position and trace retrolisthesis on extension. At L2-L3, for some reason there seems to be retrolisthesis on flexion measuring approximately 5 mm which appears to reduce on extension. Retrolisthesis at L1-L2 does not change on flexion and extension. No vertebral body compression fractures. No suspicious bony lesions. Soft tissues: Overlying bowel gas pattern is normal. No suspicious soft tissue calcifications. IMPRESSION: Extensive degenerative change. Multilevel facet arthropathy. Mild abnormal motion on at L2-L3, L4-L5, and L5-S1. Dictated by: Jimmy Ho M.D. on 12/14/2021 at 17:10 Approved by: Jimmy Ho M.D. on 12/14/2021 at 17:20
--- NOTE | 2021-12-14 | DI.RAD.S_ITS ---
PROCEDURE: XR SHOULDER RT MIN 2V INDICATIONS: Lumbago with sciatica, right side TECHNIQUE: 3 views of the shoulder were acquired. COMPARISON: [facility], CR, XR SHOULDER RT MIN 2V, 06/30/2021, 10:44. FINDINGS: Bones: Right shoulder arthroplasty. Prosthesis is anatomically aligned. No fractures or dislocations. No suspicious bony lesions. Visualized ribs appear intact. Soft tissues: No suspicious soft tissue calcifications. Small right pleural effusion or pleural thickening. IMPRESSION: Stable postsurgical changes with right shoulder arthroplasty. Dictated by: Jazmine Briseno M.D. on 12/14/2021 at 17:50 Approved by: Jazmine Briseno M.D. on 12/14/2021 at 21:00
== END ==
PROVIDERS: PCP Internal Medicine; Referring Provider Pain Medicine Pain Medicine; Visit Provider Pain Medicine Pain Medicine
DX: M54.41 Lumbago with sciatica, right side (principal); Z96.611 Presence of right artificial shoulder joint; M47.816 Spondylosis without myelopathy or radiculopathy, lumbar region
CPT/HCPCS: 72110; 73030

== ENCOUNTER → 2021-12-27 15:01 | Outpatient (CLI) | payer MEDICARE, OTHER, SELFPAY ==
--- NOTE | 2021-12-27 15:04 | DI.US.S_ITS ---
PROCEDURE: US PERIPH VENOUS LOW EXTREM LT INDICATIONS: Leg swelling, please evaluate for DVT TECHNIQUE: Real-time imaging, as well as color and pulse Doppler interrogation, were performed of the lower extremity deep veins from the inguinal ligament to the popliteal fossa. COMPARISON: None. FINDINGS: The common femoral, femoral and popliteal veins are normally compressible, and free of intraluminal thrombus. Color and pulse Doppler demonstrate normal phasic intraluminal flow. There is normal augmentation response to distal compression maneuver. IMPRESSION: Negative for deep venous thrombosis. Dictated by: Farhan Villegas M.D. on 12/27/2021 at 14:35 Approved by: Farhan Villegas M.D. on 12/27/2021 at 14:36
== END ==
PROVIDERS: PCP Internal Medicine
DX: M79.89 Other specified soft tissue disorders (principal)
CPT/HCPCS: 93971

== ENCOUNTER → 2022-01-27 10:48 | Outpatient (CLI) | payer MEDICARE, OTHER, SELFPAY ==
[2022-01-27 12:00] LABS: BUN Creatinine Ratio 21.5 (6-22); Blood Urea Nitrogen 20 mg/dL (9-20); Calcium 9.1 mg/dL (8.4-10.2); Carbon Dioxide 27 mmol/L (22-32); Chloride 101 mmol/L (98-107); Estimated Glomerular Filt Rate > 60 mL/min (>60); Glucose 202 mg/dL (80-110); HEMOLYSIS < 15 (0-50); Potassium 3.8 mmol/L (3.4-5.1); Sodium 138 mmol/L (137-145)
== END ==
PROVIDERS: PCP Internal Medicine; Referring Provider Internal Medicine Cardiovascular Disease; Visit Provider Internal Medicine Cardiovascular Disease
DX: I10 Essential (primary) hypertension (principal); R06.00 Dyspnea, unspecified
CPT/HCPCS: 36415; 80048

== ENCOUNTER → 2022-04-16 06:58 | Outpatient (CLI) | payer MEDICARE, OTHER, SELFPAY ==
[2022-04-16 11:37] LABS: BUN Creatinine Ratio 24.2 (6-22); Blood Urea Nitrogen 22 mg/dL (9-20); Calcium 8.9 mg/dL (8.4-10.2); Carbon Dioxide 31 mmol/L (22-32); Chloride 100 mmol/L (98-107); Cholesterol 142 mg/dL (140-199); Estimated Glomerular Filt Rate > 60 mL/min (>60); Glucose 183 mg/dL (80-110); HDL Cholesterol 53 mg/dL (40-60); HEMOLYSIS < 15 (0-50); LDL Cholesterol Calculated 71 mg/dL (<100); Potassium 3.9 mmol/L (3.4-5.1); Sodium 139 mmol/L (137-145); Triglycerides 92 mg/dL (35-150)
== END ==
PROVIDERS: PCP Internal Medicine; Referring Provider Internal Medicine Cardiovascular Disease; Visit Provider Internal Medicine Cardiovascular Disease
DX: I10 Essential (primary) hypertension (principal); R94.39 Abnormal result of other cardiovascular function study; E78.5 Hyperlipidemia, unspecified
CPT/HCPCS: 36415; 80048; 80061

== ENCOUNTER → 2022-10-23 09:03 | Outpatient (CLI) | payer MEDICARE, OTHER, SELFPAY ==
[2022-10-23 11:52] LABS: BUN Creatinine Ratio 24.2 (6-22); Blood Urea Nitrogen 22 mg/dL (9-20); Calcium 8.8 mg/dL (8.4-10.2); Carbon Dioxide 30 mmol/L (22-32); Chloride 102 mmol/L (98-107); Estimated Glomerular Filt Rate > 60 mL/min (>60); Glucose 129 mg/dL (80-110); HEMOLYSIS < 15 (0-50); Potassium 3.9 mmol/L (3.4-5.1); Sodium 137 mmol/L (137-145)
[2022-10-23 12:23] LABS: Prostate Specific Antigen < 0.064 ng/mL (0.10-4.00)
== END ==
PROVIDERS: PCP Internal Medicine; Referring Provider Specialist; Visit Provider Specialist
DX: Z85.46 Personal history of malignant neoplasm of prostate (principal); Z01.812 Encounter for preprocedural laboratory examination
CPT/HCPCS: 36415; 80048; 84153

== ENCOUNTER → 2022-11-23 10:51 | Outpatient (CLI) | payer MEDICARE, OTHER, SELFPAY ==
--- NOTE | 2022-11-23 | DI.CT.S_ITS ---
PROCEDURE: CT ABDOMEN PELVIS W CON INDICATIONS: Unspecified abdominal pain TECHNIQUE: After the administration of oral and intravenous contrast, axial sections were acquired from the lung bases to the pubic symphysis. Coronal and sagittal reformats were performed. For radiation dose reduction, the following was used: automated exposure control, adjustment of mA and/or kV according to patient size. COMPARISON:[facility], CT, CT LOW DOSE LUNG CA SCREENING, 07/16/2022, 10:24. FINDINGS: Image quality: Excellent. Lung bases: Bibasilar scars and atelectasis. Small hiatal hernia. Heart: No significant findings. ABDOMEN: Liver: Prominent in size. There is severe hepatic steatosis. A 2 cm hypodensity in central liver is probably a cyst. Gallbladder: Not visualized. Biliary ducts: Unremarkable. Pancreas: Pancreatic body and tail are absent, compatible with surgical resection. There is mild stranding in pancreatic tail suggesting mild pancreatitis. No pancreatic mass. No pancreatic duct dilation. Spleen: Surgically absent. Adrenal Glands: Bilateral adrenal thickening, left greater than right. Kidneys and Ureters: There is a 10 mm nonobstructive stone in left kidney. No hydronephrosis. A 1.1 cm exophytic cortical nodule in right kidney is most likely a cyst. Stomach and Bowel: Stomach appears mildly thickened. The small bowel loops and colon are normal in caliber. Diverticulosis without diverticulitis. Peritoneum: No abnormal intraperitoneal fluid. No free air. Ventral Wall: No hernia. Abdominal Nodes: No retroperitoneal or mesenteric adenopathy by size criteria. Vessels: Aorta and inferior vena cava are normal in size. PELVIS: Pelvic Organs: There are metallic implants in prostate. Bladder: Unremarkable. Pelvic Nodes: No enlarged lymph nodes. Miscellaneous: No inguinal hernias are seen. Bones: Degenerative changes in lumbar spine. IMPRESSION: 1. Postsurgical changes in upper abdomen. The pancreatic body and tail are surgically resected. There is mild stranding in pancreatic head suggesting mild pancreatitis. No findings to suggest pancreatic necrosis. No pancreatic duct dilation or pancreatic pseudocysts. 2. Mild hepatomegaly and severe steatosis. 3. There is a 2 cm hepatic hypodensity in segment IV of liver, most likely a cyst. 4. Mild gastric wall thickening. Differential diagnoses are gastritis versus inadequate distention. 5. Diverticulosis without diverticulitis. 6. Small hiatal hernia. There is concentric thickening of the distal esophagus at the gastroesophageal junction. Consider upper GI series or esophagram for further evaluation. 7. A 10 mm nonobstructive stone in left kidney. Dictated by: Jazmine Briseno M.D. on 11/23/2022 at 13:49 Approved by: Jazmine Briseno M.D. on 11/23/2022 at 14:10
== END ==
PROVIDERS: PCP Internal Medicine; Referring Provider Student in an Organized Health Care Education/Training Program; Visit Provider Student in an Organized Health Care Education/Training Program
DX: K76.0 Fatty (change of) liver, not elsewhere classified (principal); R10.9 Unspecified abdominal pain; N20.0 Calculus of kidney; N28.9 Disorder of kidney and ureter, unspecified; K57.90 Diverticulosis of intestine, part unspecified, without perforation or abscess without bleeding; K44.9 Diaphragmatic hernia without obstruction or gangrene; Z90.81 Acquired absence of spleen
CPT/HCPCS: 74177; Q9967

== ENCOUNTER → 2023-04-18 07:28 | Outpatient (CLI) | payer MEDICARE, OTHER, SELFPAY ==
[2023-04-18 08:56] LABS: Alanine Aminotransferase 20 IU/L (<50); Albumin 3.7 g/dL (3.5-5.0); Albumin Globulin Ratio 1.5 (1.0-2.8); Alkaline Phosphatase 75 U/L (38-126); Aspartate Aminotransferase 20 IU/L (17-59); BUN Creatinine Ratio 25.8 (6-22); Bilirubin Total 0.5 mg/dL (0.2-1.3); Blood Urea Nitrogen 24 mg/dL (9-20); Calcium 9.7 mg/dL (8.4-10.2); Carbon Dioxide 29 mmol/L (22-32); Chloride 102 mmol/L (98-107); Cholesterol 113 mg/dL (140-199); Estimated Glomerular Filt Rate > 60 mL/min (>60); Globulin 2.4 g/dL (1.7-4.1); Glucose 111 mg/dL (80-110); HDL Cholesterol 44 mg/dL (40-60); HEMOLYSIS < 15 (0-50); LDL Cholesterol Calculated 44 mg/dL (<100); Potassium 3.7 mmol/L (3.4-5.1); Sodium 138 mmol/L (137-145); Total Protein 6.1 g/dL (6.3-8.2); Triglycerides 126 mg/dL (35-150)
== END ==
PROVIDERS: PCP Internal Medicine; Referring Provider Nurse Practitioner; Visit Provider Nurse Practitioner
DX: I10 Essential (primary) hypertension (principal); E78.5 Hyperlipidemia, unspecified
CPT/HCPCS: 36415; 80053; 80061

== ENCOUNTER → 2023-07-29 14:01 | Outpatient (CLI) | payer MEDICARE, SELFPAY ==
--- NOTE | 2023-07-29 | DI.CT.S_ITS ---
PROCEDURE: CT LUNG LOW DOSE SCREENING INDICATIONS: Personal history of nicotine dependence TECHNIQUE: Noncontrast 2.0-2.5 mm thick sections acquired from the pulmonary apices to the posterior costophrenic angles. 7 mm thick axial MIP, and 5 mm coronal and sagittal reformats were then acquired. For radiation dose reduction, the following was used: automated exposure control, adjustment of mA and/or kV according to patient size. COMPARISON: [facility], CT, CT LOW DOSE LUNG CA SCREENING, 07/11/2021, 14:20. [facility], CT, CT LOW DOSE LUNG CA SCREENING, 07/16/2022, 10:24. [facility], CT, CT LUNG LOW DOSE SCREENING, 03/18/2018, 7:05. FINDINGS: Image quality: Diagnostic. Lower Neck: No enlarged lymph nodes. Thyroid: No thyroid nodules which require sonographic follow up, per consensus guidelines. Axillae: No enlarged lymph nodes. Chest Wall: Unremarkable. Bones: No suspicious osseous lesion. Right shoulder arthroplasty. Lungs and Pleura: No pneumothorax or pleural effusions. Mild emphysematous change. No acute airspace opacity. Left upper lobe pulmonary nodule measuring 0.8 cm, (3/86), new. Left upper lobe pulmonary nodule measuring 0.3 cm, (3/101), unchanged. Right middle lobe pulmonary nodule measuring 0.4 cm, (3/199, 216), unchanged. Heart: Heart size is normal. Moderate LAD coronary artery calcifications. No pericardial effusion. Thoracic Vessels: The aorta and pulmonary arteries demonstrate normal size. Mediastinum and Corinne: No enlarged lymph nodes. Esophagus: No wall thickening. No hiatal hernia. Upper Abdomen: Hypodensity in the right lobe of the liver is unchanged compared to 2018. IMPRESSION: Left upper lobe pulmonary nodule measuring 0.8 cm, new. LUNG-RADS 4B; very suspicious. Recommend diagnostic chest CT with or without IV contrast. Recommend PET/CT. Clinically Significant Non-pulmonary Findings: Moderate LAD coronary artery calcifications. Dictated by: Chivo Mir M.D. on 07/29/2023 at 17:00 Approved by: Chivo Mir M.D. on 07/29/2023 at 17:15
== END ==
PROVIDERS: PCP Internal Medicine; Referring Provider Internal Medicine Pulmonary Disease; Visit Provider Internal Medicine Pulmonary Disease
DX: R91.1 Solitary pulmonary nodule (principal); Z12.2 Encounter for screening for malignant neoplasm of respiratory organs; I25.10 Atherosclerotic heart disease of native coronary artery without angina pectoris; Z87.891 Personal history of nicotine dependence
CPT/HCPCS: 71271

== ENCOUNTER → 2023-10-17 09:56 | Outpatient (CLI) | payer MEDICARE, SELFPAY ==
[2023-10-17 13:53] LABS: Prostate Specific Antigen < 0.064 ng/mL (0.10-4.00)
== END ==
PROVIDERS: PCP Internal Medicine; Referring Provider Specialist; Visit Provider Specialist
DX: Z85.46 Personal history of malignant neoplasm of prostate (principal)
CPT/HCPCS: 36415; 84153

== ENCOUNTER → 2023-11-20 11:40 | Outpatient (CLI) | payer MEDICARE, SELFPAY ==
--- NOTE | 2023-11-20 | DI.CT.S_ITS ---
PROCEDURE: CT CHEST WO CON INDICATIONS: Solitary pulmonary nodule TECHNIQUE: Noncontrast 5 mm thick sections acquired from the pulmonary apices to the posterior costophrenic angles. 1 mm lung window, 5 mm thick coronal and sagittal and 7 mm axial MIP reformats were then acquired. For radiation dose reduction, the following was used: automated exposure control, adjustment of mA and/or kV according to patient size. COMPARISON: [facility], CT, CT LUNG LOW DOSE SCREENING, 07/29/2023, 14:39. [facility], CT, CT LOW DOSE LUNG CA SCREENING, 07/16/2022, 10:24. [facility], CT, CT LOW DOSE LUNG CA SCREENING, 07/11/2021, 14:20. FINDINGS: Image quality: Diagnostic. Lower Neck: No enlarged lymph nodes. Thyroid: No thyroid nodules which require sonographic follow up, per consensus guidelines. Axillae: No enlarged lymph nodes. Chest Wall: Unremarkable. Bones: No suspicious osseous lesion. Right shoulder arthroplasty. Lungs and Pleura: No pneumothorax or pleural effusions. Left upper lobe pulmonary nodule measuring 0.8 cm, (3/88), unchanged in the short-term interval. A few additional pulmonary nodules measuring 0.4 cm or less are unchanged. No new or enlarging pulmonary nodules. Heart: Heart size is normal. Moderate LAD coronary artery calcifications. No pericardial effusion. Thoracic Vessels: The aorta and pulmonary arteries demonstrate normal size. Mediastinum and Corinne: AP window node measuring 1 cm, (2/), unchanged. Esophagus: No wall thickening. No hiatal hernia. Upper Abdomen: Visualized upper abdomen solid organs and bowel loops appear normal. Cyst in the right liver is unchanged. No adrenal nodule. IMPRESSION: 1. Left upper lobe pulmonary nodule measuring 0.8 cm is unchanged in the short-term interval. This nodule was previously new on CT 07/29/2023. LUNG-RADS 4B; very suspicious. Recommend PET/CT for further evaluation. CT guided biopsy should also be considered. However, the nodule is small and may be difficult to sample. 2. AP window node measuring 1 cm. Low suspicion. Dictated by: Chiov Mir M.D. on 11/20/2023 at 14:06 Approved by: Chivo Mir M.D. on 11/20/2023 at 14:24
== END ==
PROVIDERS: PCP Internal Medicine; Referring Provider Internal Medicine Pulmonary Disease; Visit Provider Internal Medicine Pulmonary Disease
DX: R91.8 Other nonspecific abnormal finding of lung field (principal); I25.10 Atherosclerotic heart disease of native coronary artery without angina pectoris
CPT/HCPCS: 71250

== ENCOUNTER → 2024-08-24 16:19 | Outpatient (CLI) | payer MEDICARE, SELFPAY ==
--- NOTE | 2024-08-24 16:22 | DI.RAD.S_ITS ---
PROCEDURE: XR CHEST 2V INDICATIONS: RIB PAIN TECHNIQUE: 2 views of the chest were acquired. COMPARISON: [facility], CR, XR CHEST 2V, 04/25/2019, 22:42. FINDINGS: Surgical changes and devices: Postsurgical changes are seen in right shoulder. Lungs and pleura: Platelike atelectasis in left lower lobe adjacent to left hilar region is seen. Mild pulmonary vascular congestion is also noted.. No pleural effusions or pneumothorax. Mediastinum: Mediastinal contours are normal. Heart size is normal. Bones and chest wall: No suspicious bony abnormalities. Soft tissues appear unremarkable. IMPRESSION: Platelike atelectasis in left lower lobe. No definite focal infiltrate. No pleural effusion or pneumothorax. Mild pulmonary vascular congestion. Dictated by: Salvatore Beaulieu M.D. on 08/24/2024 at 16:58 Approved by: Salvatore Beaulieu M.D. on 08/24/2024 at 17:00
--- NOTE | 2024-08-24 16:23 | DI.RAD.S_ITS ---
PROCEDURE: XR RIBS RT 2V INDICATIONS: RIB PAIN TECHNIQUE: 2 views of the ribs were acquired. COMPARISON: None. FINDINGS: Surgical changes and devices: None. Bones and chest wall: Subtle cortical irregularity involving right anterolateral 7th rib is seen. No other fracture or dislocation. No suspicious bony lesions. Overlying soft tissues appear unremarkable. Lungs and pleura: The visualized lung appears clear. No pleural effusions or pneumothorax are visible. IMPRESSION: Minimally displaced right anterolateral 7th rib fracture. Dictated by: Salvatore Beaulieu M.D. on 08/24/2024 at 17:00 Approved by: Salvatore Beaulieu M.D. on 08/24/2024 at 17:01
== END ==
LOC: RAD 16:21
PROVIDERS: PCP Internal Medicine; Referring Provider Family Medicine; Visit Provider Family Medicine
DX: S22.31XA Fracture of one rib, right side, initial encounter for closed fracture (principal); J98.11 Atelectasis; R07.81 Pleurodynia; R09.89 Other specified symptoms and signs involving the circulatory and respiratory systems
CPT/HCPCS: 71046; 71100

== ENCOUNTER → 2024-09-10 10:12 | Outpatient (CLI) | payer MEDICARE, SELFPAY ==
--- NOTE | 2024-09-10 10:14 | DI.RAD.S_ITS ---
PROCEDURE: XR FOOT LT MIN 3V INDICATIONS: 5TH MET FRACTURE TECHNIQUE: 3 views of the foot were acquired. COMPARISON: None. FINDINGS: Bones: Mildly displaced avulsion fracture of the base of the 5th metatarsal. No other fractures are identified. No suspicious bony lesions. Plantar calcaneal enthesopathy. Soft tissues: No tibiotalar joint effusion. Achilles tendon appears normal. IMPRESSION: Mildly displaced avulsion fracture of the base of the 5th metatarsal. Dictated by: Dru Sorto M.D. on 09/10/2024 at 16:44 Approved by: Dru Sorto M.D. on 09/10/2024 at 16:45
== END ==
PROVIDERS: PCP Internal Medicine; Referring Provider Podiatrist Foot & Ankle Surgery; Visit Provider Podiatrist Foot & Ankle Surgery
DX: S92.352A Displaced fracture of fifth metatarsal bone, left foot, initial encounter for closed fracture (principal); M77.32 Calcaneal spur, left foot; M79.672 Pain in left foot
CPT/HCPCS: 73630

== ENCOUNTER → 2024-09-23 12:03 | Outpatient (CLI) | payer MEDICARE, SELFPAY ==
[2024-09-23 12:43] LABS: Add Manual Diff / Slide Review NO; Basophils Absolute Auto 100 /uL (0-100); Basophils Percent Auto 0.9 % (0-2); Eosinophils Absolute Auto 200 /uL (0-450); Eosinophils Percent Auto 2.1 % (2-4); Hematocrit 38.1 % (41-53); Hemoglobin 12.7 g/dL (13.5-17.5); Lymphocytes Absolute Auto 2900 /uL (1100-4500); Lymphocytes Percent Auto 27.4 % (25-40); Mean Corpuscular HGB Conc 33.4 % (30-36); Mean Corpuscular Hemoglobin 29.6 PG (26-34); Mean Corpuscular Volume 88.7 fL (80-100); Monocytes Absolute Auto 800 /uL (0-900); Monocytes Percent Auto 7.4 % (3-14); Neutrophils Absolute Auto 6600 /uL (1500-7000); Neutrophils Percent Auto 62.2 % (50-75); Platelet Count 277 X10^3/uL (150-400); Red Cell Distribution Width 16.2 % (11.6-14.8); White Blood Cell Count 10.7 X10^3/uL (4.5-11.0)
[2024-09-23 13:05] LABS: Alanine Aminotransferase 19 IU/L (<50); Albumin 3.9 g/dL (3.5-5.0); Albumin Globulin Ratio 1.6 (1.0-2.8); Alkaline Phosphatase 86 U/L (38-126); Aspartate Aminotransferase 21 IU/L (17-59); Bilirubin Total 0.6 mg/dL (0.2-1.3); Blood Urea Nitrogen 24 mg/dL (9-20); Calcium 9.4 mg/dL (8.4-10.2); Carbon Dioxide 24 mmol/L (22-32); Chloride 104 mmol/L (98-107); Estimated Glomerular Filt Rate > 60 mL/min (>60); Globulin 2.4 g/dL (1.7-4.1); Glucose 107 mg/dL (80-110); HEMOLYSIS < 15 (0-50); Lactate Dehydrogenase 139 U/L (120-246); Potassium 4.1 mmol/L (3.4-5.1); Sodium 139 mmol/L (137-145); Total Protein 6.3 g/dL (6.3-8.2)
[2024-09-24 16:40] LABS: Free Kappa Lt Chains, Serum 28.7 mg/L (3.3-19.4); Free Lambda Lt Chains,Serum 19.6 mg/L (5.7-26.3)
[2024-09-25 15:11] LABS: Albumin 3.1 g/dL (2.9-4.4); Alpha-1-Globulin 0.3 g/dL (0.0-0.4); Alpha-2-Globulin 0.8 g/dL (0.4-1.0); Gamma Globulin 0.9 g/dL (0.4-1.8); Globulin Total 2.9 g/dL (2.2-3.9); Immunoglobulin A, Serum 281 mg/dL (61-437); Immunoglobulin G,Serum 778 mg/dL (603-1613); Immunoglobulin M, Serum 36 mg/dL (20-172)
[2024-09-25 17:10] LABS: Beta-2-Microglobulin 2.7 mg/L (0.6-2.4)
== END ==
PROVIDERS: PCP Internal Medicine; Referring Provider Internal Medicine Hematology & Oncology; Visit Provider Internal Medicine Hematology & Oncology
DX: D47.2 Monoclonal gammopathy (principal)
CPT/HCPCS: 36415; 80053; 82232; 82784; 83615; 83883; 84155; 84165; 85025; 86334

== ENCOUNTER → 2024-10-21 11:49 | Outpatient (CLI) | payer MEDICARE, SELFPAY ==
--- NOTE | 2024-10-21 | DI.RAD.S_ITS ---
PROCEDURE: XR FOOT LT MIN 3V INDICATIONS: MONITOR FRACTURE TECHNIQUE: 3 views of the foot were acquired. COMPARISON: [facility], CR, XR FOOT LT MIN 3V, 09/10/2024, 9:23. FINDINGS: Bones: Nondisplaced transverse fracture of the 5th metatarsal base again noted. No evidence of progression osseous union. Moderate pes planus and 2nd through 5th hammertoe deformities seen. Vague erosive changes along the medial periarticular region of the 5th MTP which are almost certainly chronic. Joints: 5th DIP is fused. Mild degenerative change present interphalangeal and 1st MTP joints. Soft tissues: Mild diffuse soft swelling noted IMPRESSION: Nondisplaced transverse fracture-5th metatarsal base. No evidence of osseous union. Other chronic findings that stable Dictated by: Ravin Mcduffie M.D. on 10/22/2024 at 6:25 Approved by: Ravin Mcduffie M.D. on 10/22/2024 at 6:29
== END ==
PROVIDERS: PCP Internal Medicine; Referring Provider Podiatrist Foot & Ankle Surgery; Visit Provider Podiatrist Foot & Ankle Surgery
DX: S92.355A Nondisplaced fracture of fifth metatarsal bone, left foot, initial encounter for closed fracture (principal); M21.072 Valgus deformity, not elsewhere classified, left ankle; M20.42 Other hammer toe(s) (acquired), left foot; M79.672 Pain in left foot; M79.89 Other specified soft tissue disorders
CPT/HCPCS: 73630

== ENCOUNTER → 2024-11-04 12:12 | Outpatient (CLI) | payer MEDICARE, SELFPAY ==
[2024-11-04 14:06] LABS: Prostate Specific Antigen < 0.064 ng/mL (0.10-4.00)
== END ==
PROVIDERS: PCP Internal Medicine; Referring Provider Urology; Visit Provider Urology
DX: Z85.46 Personal history of malignant neoplasm of prostate (principal)
CPT/HCPCS: 36415; 84153

== ENCOUNTER → 2024-11-11 12:17 | Outpatient (CLI) | payer MEDICARE, SELFPAY ==
--- NOTE | 2024-11-11 | DI.RAD.S_ITS ---
PROCEDURE: XR FOOT LT MIN 3V INDICATIONS: FOOT PAIN TECHNIQUE: 3 views of the foot were acquired. COMPARISON: [facility], CR, XR FOOT LT MIN 3V, 10/21/2024, 11:59. FINDINGS: Bones: Partially united fracture of the 5th metatarsal base appreciated. 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 on 11/12/2024 at 10:49 Approved by: Ravin Mcduffie M.D. on 11/12/2024 at 10:50
== END ==
PROVIDERS: PCP Internal Medicine; Referring Provider Podiatrist Foot & Ankle Surgery; Visit Provider Podiatrist Foot & Ankle Surgery
DX: S92.352K Displaced fracture of fifth metatarsal bone, left foot, subsequent encounter for fracture with nonunion (principal); M79.89 Other specified soft tissue disorders; Q66.89 Other specified congenital deformities of feet; M79.672 Pain in left foot; X58.XXXD Exposure to other specified factors, subsequent encounter
CPT/HCPCS: 73630

== ENCOUNTER → 2024-12-03 13:37 | Outpatient (CLI) | payer MEDICARE, SELFPAY ==
--- NOTE | 2024-12-03 13:39 | DI.RAD.S_ITS ---
PROCEDURE: XR DEXA AXIAL SKELETON INDICATIONS: LOW BONE DENISTY FOUND ON XRAY FILMS COMPARISON: None. FINDINGS: Lumbar Spine: Bone mineral density 1.059 g/cm2, T score 0.1, normal. Left Femoral Neck: Bone mineral density 0.663 g/cm2, T score -1.7. Left Hip: Bone mineral density 0.814 g/cm2, T score -1, normal. Fracture Risk Calculation (when applicable): Smoking history noted. 10-year fracture risk of a major osteoporotic fracture 7.3 percent and of a hip fracture 2.7 percent. (T score greater or equal to -1.0 to: NORMAL) (T score from -1.1 to -2.4: OSTEOPENIA) (T score less than or equal to -2.5: OSTEOPOROSIS) IMPRESSION: Osteopenia. Follow-up guidelines as follows: Osteoporosis: Consider a repeat DEXA and Vertebral Fracture Assessment (VFA) exam in 2 years or sooner if medically necessary, to reassess this patient's status. Osteopenia: Consider a repeat DEXA in 2-3 years to reassess this patient's status, or if there is a new clinical indication. Normal: Consider a repeat DEXA in 5 years or sooner, or if there is a new clinical indication. All treatment decisions require clinical judgment and consideration of individual patient factors, including patient preferences, comorbidities, previous drug use, risk factors not captured in the FRAX model (e.g., frailty, falls, vitamin D deficiency, increased bone turnover, interval significant decline in bone density ) and possible under- or over-estimation of fracture risk by FRAX. In addition, the NOF Guide recommends that FDA-approved medical therapies be considered in postmenopausal women and men age >= 50 years with a: * Hip or vertebral (clinical or morphometric) fracture * T-score of <=-2.5 at the spine or hip * Ten-year fracture probability by FRAX of >= 3% for hip fracture or >=20% for major osteoporotic fracture. Dictated by: Cipriano Guillaume M.D. on 12/04/2024 at 11:14 Approved by: Cipriano Guillaume M.D. on 12/04/2024 at 11:15
== END ==
PROVIDERS: PCP Internal Medicine; Referring Provider Internal Medicine; Visit Provider Internal Medicine
DX: M85.89 Other specified disorders of bone density and structure, multiple sites (principal)
CPT/HCPCS: 77080